=== PATIENT | female | born 1970 | race Caucasian/White ===

== ENCOUNTER 2021-01-24 09:08 | Emergency (ER) | payer OTHER ==
[~2021-01-24] VITALS: Ht 157.5 cm; Wt 71.0 kg
[2021-01-24 09:20] VITALS: BP 138/94
[2021-01-24] MEDS ORDERED: NEOMY/BACITR/POLYMYXIN OINT PACKET. TP ONE (09:45)
[2021-01-24] MEDS ORDERED: LIDOCAINE 2%/EPI 1:100,000 20 ML VIAL. IJ ONE (09:45)
[2021-01-24] MEDS ORDERED: ACETAMINOPHEN 500 MG TABLET PO ONE ×2 (10:09→10:15)
--- NOTE | 2021-01-24 10:12 | PHYS DOC ---
Past History Past Medical History: Hypothyroid Past Surgical History: , Hysterectomy Additional Past Surgical Histo: Bening brain tumor, ORIF R ankle Smoking: Non-smoker Alcohol Use: None Drug Use: None General Adult EDM: Chief Complaint: LACERATION/AVULSION HPI: HPI: 50-year-old female presents with report of mechanical trip and fall while carrying a box while at work just prior to arrival. Patient patient is a fine arts teacher. Patient fall to the floor breaking her glasses. Patient reports laceration to left eyebrow. Reports she was seen by school nurse who bandaged her wound and applied an ice pack. Patient denies any loss of consciousness. Denies use of blood thinners. Reports last tetanus booster less than 5 years ago. Denies neck pain. Denies other injury. Review of Systems: Review of Systems: Constitutional: Denies fever or chills Eyes: Denies redness; reports left upper eyelid swelling and ecchymosis HENT: Denies nasal congestion or sore throat Respiratory: Denies cough or shortness of breath Cardiovascular: Denies chest pain or palpitations GI: Denies abdominal pain, nausea, or vomiting : Denies dysuria or hematuria Musculoskeletal: Denies back pain or joint pain Integument: Denies rash; reports laceration to left eyebrow Neurologic: Denies headache, focal weakness or sensory changes Complete systems were reviewed and found to be within normal limits, except as documented in this note. Current Medications: Current Meds: Current Medications Medications (Trade) Dose Ordered Sig/Viktoria Start Time Stop Time Status Last Admin Dose Admin Acetaminophen (Tylenol) 500 mg 1X ONCE 01/24/21 10:15 01/24/21 10:16 UNV Lidocaine/ Epinephrine (Xylocaine 2%-Epi 1:100,000) 20 ml 1X ONCE 01/24/21 09:45 01/24/21 09:46 DC Neomycin/ Polymyxin/ Bacitracin (Triple Antibiotic Ointment) 1 pkt 1X ONCE 01/24/21 09:45 01/24/21 09:46 DC Allergies: Allergies: Allergies Coded Allergies Type Severity Reaction Last Updated Verified No Known Drug Allergies 01/24/21 No Physical Exam: PE: Constitutional: Well developed, well nourished, no acute distress, non-toxic appearance HENT: Normocephalic, nares clear, TMs clear, no workman sign Eyes: PERRL, EOMI, conjunctiva normal, no discharge, left upper eyelid ecchymosis and swelling Neck: Normal range of motion, no midline tenderness, supple Lungs & Thorax: No respiratory distress, equal chest rise and fall Abdomen: Soft, no tenderness; pelvis stable and nontender Skin: Warm, dry, no erythema, 2 cm vertical laceration to left eyebrow Extremities: No tenderness, ROM intact, no edema Neurologic: Alert and oriented X 3, normal motor function, normal sensory function, no focal deficits noted, cerebellar function intact Psychologic: Affect normal, judgment normal EKG: EKG: [] Radiology/Procedures: Radiology/Procedures: [] Heart Score: C/O Chest Pain: N/A Course & Med Decision Making: Course & Med Decision Making Patient presents with report of mechanical trip and fall while at work. Patient reports she was wearing glasses and came down breaking her glasses. Patient does have small laceration to left eyebrow with some ecchymosis and swelling to left eyelid. Patient neurologically intact. Denies use of blood thinners. Denies loss of conscious. Denies neck pain. Tetanus up-to-date. Laceration repaired. Wound dressed. Patient stable for discharge with outpatient follow-up with PCP. Discussed findings and plan with patient, who acknowledges understanding and agreement. Analilia Disclaimer: Analilia Disclaimer: This electronic medical record was generated, in whole or in part, using a voice recognition dictation system. Laceration/Wound Repair Laceration/Wound Repair : Wound Location: face (left eyebrow) Wound's Depth, Shape: linear Wound Length (cm): 2 Irrigated w/ Saline (ccs): 100 Anesthesia: Lidocaine w/ Epi (2%) Volume Anesthetic (ccs): 1 Wound Debrided: minimal Wound Repaired With: sutures Suture Size/Type: 6:0, nylon Number of Sutures: 3 Sterile Dressing Applied?: Yes Progress Verbal consent obtained. Time out performed. Hand hygiene utilized. Wound cleaned with ChloraPrep. Anesthesia obtained via a 30-gauge hypodermic needle with (1) mL's of lidocaine 2% with epinephrine. Copious irrigation performed. Wound well approximated with 6-0 Nylon simple interrupted sutures x3. Patient t olerated procedure well and without difficulty. Empiric antibiotic ointment applied prior to sterile dressing. Departure Departure: Impression: Primary Impression: Laceration of left eyebrow Qualified Codes: S01.112A - Laceration without foreign body of left eyelid and periocular area, initial encounter Disposition: HOME / SELF CARE / HOMELESS Condition: STABLE Referrals: PCP,NO (PCP) Patient Instructions: Facial or Scalp Contusion, [id number], Laceration Care, Adult, [id number] Additional Instructions: Do not soak your wound. You may shower. Clean wound daily with soap and water. Change dressing 2 times daily. Use over the counter antibiotic ointment with each dressing change. Sutures need to be removed in 5 days. Present to your family doctor or local urgent care for removal. You may also present to the ED but it will be an additional visit/charge. After suture removal you may use Vitamin E ointment to soften the wound and prevent scarring. Use [id number] ibuprofen and or Tylenol for pain or discomfort. Ice area of swelling 20 minutes on then leave off for next 20 minutes. Repeat several times daily for the next 2 days. GABRIELLA HENDRICKS DO Jan 24, 2021 10:12
== END 2021-01-24 10:15 | disposition home or self-care (01) ==
LOC: ER 09:08
DX: S01.112A Laceration without foreign body of left eyelid and periocular area, initial encounter (principal); E03.9 Hypothyroidism, unspecified; W01.0XXA Fall on same level from slipping, tripping and stumbling without subsequent striking against object, initial encounter; Y93.89 Activity, other specified; Y92.89 Other specified places as the place of occurrence of the external cause; Y99.8 Other external cause status
CPT/HCPCS: 12011; 99282